=== PATIENT | male | born 1980 | race Caucasian/White ===

== ENCOUNTER 2018-03-08 08:40 | Emergency (ER) | payer OTHER ==
[~2018-03-08] VITALS: Ht 167.6 cm; Wt 73.0 kg
[2018-03-08 08:48] VITALS: Ht 167.6 cm; Wt 73.0 kg
[2018-03-08 09:46] LABS: CHLORIDE SERUM 103 mmol/L (98-107); POTASSIUM SERUM 3.7 mmol/L (3.5-5.1); SODIUM SERUM 139 mmol/L (136-145)
[2018-03-08 09:58] LABS: BASOPHIL % 0.4 % (0-2); CALCIUM 8.2 mg/dL (8.5-10.1); CARBON DIOXIDE 29.5 mmol/L (21-32); CREATININE SERUM 0.9 mg/dL (0.7-1.3); GFR1 > 60 mL/min; GLUCOSE SERUM 96 mg/dL (74-106); PLATELET COUNT 227 x10^3mcL (130-400); RED CELL DISTRIBUTION WIDTH 13.6 % (11.5-14.5)
[2018-03-08 10:03] LABS: ALBUMIN 4.2 g/dL (3.4-5.0); ALKALINE PHOSPHATASE 58 U/L (46-116); ALT/SGPT 77 U/L (16-63); AST/SGOT 35 U/L (15-37); BILIRUBIN TOTAL 0.3 mg/dL (0.20-1.00); TOTAL PROTEIN, SERUM 7.3 g/dL (6.4-8.2)
[2018-03-08 11:15] VITALS: BP 119/80
== END 2018-03-08 11:15 | disposition home or self-care (01) ==
LOC: ED 08:40
PROVIDERS: Emergency Medicine
DX: R42 Dizziness and giddiness (principal); R20.2 Paresthesia of skin
CPT/HCPCS: 36415; Q0092

== ENCOUNTER 2018-05-22 20:34 | Emergency (ER) | payer OTHER ==
[~2018-05-22] VITALS: Ht 162.6 cm; Wt 67.1 kg
[2018-05-22 20:41] VITALS: Ht 162.6 cm; Wt 67.1 kg
[2018-05-22 23:01] VITALS: BP 113/67
== END 2018-05-22 23:01 | disposition home or self-care (01) ==
LOC: ED 20:34
DX: K21.9 Gastro-esophageal reflux disease without esophagitis (principal)